=== PATIENT | male | born 1995 | race Caucasian/White ===

== ENCOUNTER 2019-11-17 08:38 | Emergency (ER) | payer BC, SELFPAY ==
[2019-11-17 08:40] VITALS: TEMP 36.9; BMI 34.9
[2019-11-17 08:47] VITALS: BP 142/76; PULSE 78; RESP 17; O2SAT 98
--- NOTE | 2019-11-17 08:56 | W.ED.SYNCOPE ---
HPI - Syncope General: Chief Complaint: Syncope Stated Complaint: SYNCOPAL EPISODE Time Seen by Provider: 11/17/19 08:40 History of Present Illness: HPI narrative: Patient is a 24-year-old male who comes into the ED after having a syncopal episode and hitting his head on the floor. Patient says that last night he started feeling nauseous, had diarrhea and a fever. Patient said he hardly slept last night because of feeling nauseous and he had a headache. This morning he still did not feel well and did not eat anything this morning. He went to work and he was continuing to feel bad and was going to talk to his manager filter about going home for the day to rest. Patient says he was in his manager filter's office and walked to open the door and then lost consciousness. The manager filter was present during syncopal episode and states that he fell down and hit his head. Auto Body Worker was unable to wake up patient and he was sent to the ED for evaluation. Patient says that right before his syncopal episode he is started getting more dizzy and nauseous. Currently here in the ED he says he does not have any nausea or dizziness. Denies any headache or neurological symptoms such as vision changes, numbness/tingling to extremities or weakness to extremities. Patient has no complaints besides the laceration on his right eyebrow. In the ED, he does not have any nausea, headache or generalized feeling unwell like he did last night and this morning. Patient states he is unsure of last tetanus vaccination. Associated symptoms: Reports fever(s), lightheadedness and nausea; Deny abdominal pain, chest pain or headache(s) Review of Systems Const: Reports: fever(s); Denies: chills or fatigue Eyes: Denies: change in vision or eye discomfort ENMT: Denies: throat pain, odynophagia, nasal discharge or nasal congestion Card: Reports: lightheadedness and syncope; Denies: chest pain, palpitations, edema, swelling of feet/ankles, dyspnea on exertion or orthopnea Resp: Denies: dyspnea, productive cough or non-productive cough GI: Reports: nausea and diarrhea; Denies: abdominal pain, vomiting, constipation or hematochezia : Denies: flank pain, difficulty urinating, dysuria or hematuria Musc: Denies: neck pain, back pain or extremity swelling Skin/Breast: Reports: new lesions (2 lacerations to right eyebrow region.); Denies: rash Neuro: Denies: headache(s), numbness in extremities or weakness in extremities PFSH ED PFSH: Social History Smoking and tobacco status: never smoked Physical Exam Const: COMMON NORMALS: no acute distress, patient oriented x3 and alert GENERAL APPEARANCE: cooperative and comfortable HENMT: COMMON NORMALS: normocephalic HEAD & SCALP: normocephalic MOUTH: Normal oral and palatal mucosa present THROAT: posterior oropharynx normal and uvula midline Eye: COMMON NORMALS: Equal, round and reactive pupils present and EOMs intact bilaterally PERIORBITAL: periorbital findings abnormal positive right (2 lacerations near eyebrow.) periorbital swelling PUPIL: Yes Equal, round and reactive pupils present Neck/C-Spine: COMMON NORMALS: supple GENERAL: Yes normal visual inspection Resp: COMMON NORMALS: normal respiratory effort, No retractions, No use of accessory muscles and clear to auscultation bilaterally AUSCULTATION: clear to auscultation bilaterally Cardio: COMMON NORMALS: regular rate, regular rhythm, S1 normal heart sound present, S2 normal heart sound present, No gallops present (Cardio), No clicks present (Cardio), No murmurs present (Cardio) and Peripheral pulses 2+ throughout RATE: regular rate RHYTHM: regular rhythm HEART SOUNDS: S1 normal heart sound present and S2 normal heart sound present PERIPHERAL PULSES: Peripheral pulses 2+ throughout GI: COMMON NORMALS: Normal to inspection, nondistended, normoactive bowel sounds present, Soft to palpation, non-tender and no masses PALPATION: Yes Soft to palpation : COMMON NORMALS: Yes no CVA tenderness BLADDER/KIDNEY EXAM: Yes no CVA tenderness Back/Pelvis: COMMON NORMALS: no CVA tenderness Extremity: NARRATIVE EXTREMITY EXAM: Patient has 3 superficial abrasions over second third and fourth digit PIP joint area GENERAL: Yes normal exam except as noted Neuro: COMMON NORMALS: patient oriented x3, CN's II-XII intact bilaterally, moves all extremities, no focal motor deficits and no sensory deficits noted SENSORIUM/ORIENTATION: Yes alert SENSORY EXAM: Yes extremities (intact) MOTOR EXAM: 5/5 motor strength present throughout Skin: GENERAL SKIN EXAM: dry skin TRAUMA: laceration (Patient has two approximately 1 cm linear lacerations over right eyebrow.) linear and superficial; no foreign bodies present and not contaminated Procedures Laceration Laceration 1: Site: face (right eyebrow) Side (If applicable): right Size (cm): 1 Description: linear and clean Depth: simple, single layer Local Anesthetic: lidocaine 1% Amount of anesthesia used (mL): 10 Pre-repair: irrigated extensively (With normal saline and cleaned with CHG.) Skin layer closed with: nylon Size (cm): 5-0 Number of sutures: 3 Technique: simple, interrupted Laceration 2: Site: face (Right eyebrow.) Side (If applicable): right Size (cm): 1 Description: linear and clean Depth: simple, single layer Local Anesthetic: lidocaine 1% Amount of anesthesia used (mL): 10 Pre-repair: irrigated extensively (With normal saline and cleaned with CHG.) Skin layer closed with: nylon Size (cm): 5-0 Number of sutures: 2 Technique: simple, interrupted Course Vital Signs: Vital signs: Vital Signs Temperature 98.4 F 11/17/19 08:40 Pulse Rate 80 11/17/19 11:01 Respiratory Rate 18 11/17/19 11:01 Blood Pressure 126/66 11/17/19 11:01 Pulse Oximetry 90 11/17/19 11:01 MDM - Syncope Imaging Data^: CT Head: Attestation: I personally reviewed and interpreted this imaging study as follows: Radiologist's impression: [address] [address] [address] Scan Report Signed Patient: Roddy Soriano Unit #: [id number] : 1995 Age/Sex: 24 / M ADM Date: 11/17/19 Loc: ER Room/Bed: Attending Dr: Ordering Provider/Ordering MD: Donaldo Elliott Date of Service: 11/17/19 Procedure(s): CT head wo con* [id number] Accession Number(s): [id number] Report Number: [id number] WS: [id number] CT head wo con* [id number] REASON FOR EXAM: Syncopal episode fell hit head IV CONTRAST ADMINISTERED: None. TOTAL EXAM DLP: 767.[address] scans at [facility] use at least one of these dose optimization techniques: automated exposure control; mA and/or kV adjustment per patient size (includes targeted exams where dose is matched to clinical indication); or iterative reconstruction. FINDINGS: The williamson and white matter interfaces are normal. A soft tissue air is seen over the right orbit. 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 The ventricles are all of normal size. The cornell was normal as well as the cerebellum. The orbits and paranasal sinuses are all normal with no fractures seen. The mastoid air cells were normal. There is no evidence of hemorrhage, infarction, or mass effect. 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 Normal CT of the brain Soft tissue air over the right orbit. Dictated By: Jeancarlos Fajardo DO Signed By: Jeancarlos Fajardo DO Signed Date/Time: 11/17/19936 DD/ 3 Discharge Plan Discharge Patient Disposition: Home, Self-Care Clinical Impression: Syncope with normal neurologic examination, Laceration Condition: Stable Prescriptions: New cephalexin 500 mg capsule 500 mg PO Q6H 3 Days Qty: 12 RF: 0 No Action No Known Home Medications RF: 0 Discharge Orders: Discharge Order (Routine); Ordered 11/17/19 Ordered By: Donaldo Elliott Discharge Diet: Regular Discharge Activity: Increase activity as tolerated Patient Instructions: Suture Care (ED), Laceration (ED), Syncope (ED) Activity Restrictions/Additional Instructions: Follow-up with PCP, urgent care or ED to get sutures removed in 5 days. Keep laceration site dry and covered for the first 48 hours. After that you can then clean and re-bandage daily. Take full course of antibiotics as prescribed to prevent any infection. Discharge Date/Time: 11/17/19 11:01 Coding Level of Care Code ED General Utility Machine Operator for Mariel Macdonald Exam Comprehensive
--- NOTE | 2019-11-17 08:57 | CT_ITS ---
WS: [id number] CT head wo con* [id number] REASON FOR EXAM: Syncopal episode fell hit head IV CONTRAST ADMINISTERED: None. TOTAL EXAM DLP: 767.[address] scans at [facility] use at least one of these dose optimization techniques: automat ed exposure control; mA and/or kV adjustment per patient size (includes targeted exams where dose is matched to clinical indication); or iterative reconstruction. FINDINGS: The williamson and white matter interfaces are normal. A soft tissue air is seen over the right orbit. 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 The ventricles are all of normal size. The cornell was normal as well as the cerebellum. The orbits and paranasal sinuses are all normal with no fractures seen. The mastoid air cells were normal. There is no evidence of hemorrhage, infarction, or mass effect. 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 Normal CT of the brain Soft tissue air over the right orbit.
[2019-11-17] MEDS: lidocaine 1% INJ 20 mL INJECTION (10:32)
[2019-11-17] MEDS: tetanus-dipt-pertussis 0.5 mL SDV IM (10:33)
--- NOTE | 2019-11-17 10:41 | PC.NURSE ---
patients wound cleaned and sutured, patient tolerated well
[2019-11-17 11:01] VITALS: BP 126/66; PULSE 80; RESP 18; O2SAT 90
== END 2019-11-17 11:01 | disposition home or self-care (01) ==
PROVIDERS: Emergency Provider Physician Assistant
DX: R55 Syncope and collapse (principal); S01.111A Laceration without foreign body of right eyelid and periocular area, initial encounter; W19.XXXA Unspecified fall, initial encounter; Z23 Encounter for immunization
CPT/HCPCS: 12011; 12345; 70450; 90471; 90715; 99281; 99283; J2001